=== PATIENT | female | born 1960 | race Caucasian/White ===

== ENCOUNTER → 2017-03-31 | Outpatient (CLI) | payer BC | LOC: RAD 11:44 | DX: S63.602A Unspecified sprain of left thumb, initial encounter (principal); Z87.81 Personal history of (healed) traumatic fracture ==

== ENCOUNTER 2019-11-08 11:02 | Emergency (ER) | payer BC ==
[~2019-11-08] VITALS: Ht 157.5 cm; Wt 84.1 kg
[2019-11-08] MEDS ORDERED: CEPHALEXIN500 M1 PO (12:20)
[2019-11-08] MEDS ORDERED: NORCO 325 MG-51 TA1 PO (12:20)
[2019-11-08 12:32] VITALS: BP 143/82
[2019-11-08] MEDS ORDERED: BP pill PO (18:42)
== END 2019-11-08 12:32 | disposition home or self-care (01) ==
LOC: ED 11:02
DX: S68.122A Partial traumatic metacarpophalangeal amputation of right middle finger, initial encounter (principal); I10 Essential (primary) hypertension; W27.4XXA Contact with kitchen utensil, initial encounter; Y93.G3 Activity, cooking and baking; Y92.009 Unspecified place in unspecified non-institutional (private) residence as the place of occurrence of the external cause

== ENCOUNTER 2019-11-13 14:56 | Outpatient (RCR) | payer BC ==
[2019-11-11 08:50] VITALS: BP 115/71
[~2019-11-13] VITALS: Ht 157.5 cm; Wt 84.1 kg
[~2019-11-13 14:56] MED LIST: BP pill PO; CEPHALEXIN500 M1 PO; NORCO 325 MG-51 TA1 PO
[2019-11-13 15:18] VITALS: BP 120/66
[2019-11-22] MEDS ORDERED: BENICAR20 MG PO (15:32)
== END 2019-11-13 15:00 | disposition still patient (30) ==
LOC: AMSURD 14:56
DX: Z48.00 Encounter for change or removal of nonsurgical wound dressing (principal)

== ENCOUNTER → 2019-11-22 | Outpatient (CLI) | payer BC ==
[~2019-11-22] MED LIST changes: +BENICAR20 MG PO
[2019-11-22 15:13] VITALS: BP 116/74
== END ==
LOC: AMSURD 14:52
DX: Z48.02 Encounter for removal of sutures (principal)

== ENCOUNTER 2022-04-20 10:48 | Outpatient (RCR) | payer BC | END 2022-05-16 | disposition home or self-care (01) | LOC: PT | DX: S49.82XD Other specified injuries of left shoulder and upper arm, subsequent encounter (principal); X58.XXXD Exposure to other specified factors, subsequent encounter ==

== ENCOUNTER → 2022-05-16 | Outpatient (CLI) | payer BC | LOC: RAD 07:50 | DX: M67.814 Other specified disorders of tendon, left shoulder (principal) ==